=== PATIENT | female | born 1955 | race Caucasian/White ===

== ENCOUNTER → 2019-07-10 | Outpatient (CLI) | payer BC ==
[2014-11-05 18:02] VITALS: BP 151/72
--- NOTE | 2019-07-10 13:58 | KCIC ---
Bilateral digital screening mammograms with 3-D tomosynthesis: Reason for examination: Routine screening. Comparison is made to previous studies dated 07/09/2017 and 07/07/2016. Bilateral mammograms in CC and oblique projections were obtained with 2-D imaging and 3-D tomosynthesis imaging on a Siemens Inspiration unit and reviewed on the workstation. Interpretation was made with the benefit of CAD. The skin and nipples show no abnormalities. No abnormal axillary lymph nodes are seen. The breast parenchyma is extremely dense. (Breast density: Category D.) There continues to be nodular asymmetry at the 2:00 C position of the left breast which is stable and appears contained punctate calcifications and may represent a degenerating fibroadenoma. There are however new areas of nodular parenchymal density in the lower inner quadrant of the left breast at the 8:00 B position measuring approximately 9 mm in size and in the inferior right breast seen best on oblique view measuring 8 mm in size and probably located at the 6:00 B position. No suspicious calcifications are seen but there are a cluster of punctate calcifications again present in the upper outer quadrant of the right breast which are stable. Biopsy clip remains present in the right breast. There are a few scattered benign calcifications seen bilaterally. IMPRESSION: Stable nodule density at the 2:00 C position of the left breast. New nodular densities in approximately the 8:00 B position of the left breast and 6:00 B position of the right breast. Recommend further evaluation with bilateral breast ultrasound. Your patient's mammogram demonstrates that she has dense breast tissue (breast density category C or D), which could hide abnormalities, and if she has other risk factors for breast cancer that have been identified, she might benefit from supplemental screening tests that may be suggested by you as her ordering physician. Dense breast tissue, in and of itself, is a relatively common condition. Therefore, this information is not provided to cause undue concern, but rather to raise your awareness and to promote discussion with your patient regarding the presence of other risk factors, in addition to dense breast tissue. Your patient's mammography results will be sent to her. BI-RAD Category 0: Incomplete. Needs additional imaging evaluation. "Our facility is accredited by the [employer] Mammography Program." This patient's information has been entered into a reminder system for the patient to be notified with the results of her examination and a target date for the next mammogram. Electronically signed by: Fanny Dickson MD (07/10/2019 1:55 PM) [id number]
== END | disposition home or self-care (01) ==
LOC: KCIC MAMMO 10:52
PROVIDERS: ATTEND Family Medicine
DX: Z12.31 Encounter for screening mammogram for malignant neoplasm of breast (principal); N64.89 Other specified disorders of breast
CPT/HCPCS: 77063; 77067

== ENCOUNTER → 2019-07-21 | Outpatient (CLI) | payer BC ==
[2014-11-05 18:02] VITALS: BP 151/72
--- NOTE | 2019-07-21 17:23 | KCIC ---
Bilateral breast ultrasound: Reason for examination: Nodular densities on screening mammogram. Comparison is made to mammographic exam dated 07/10/2019. Bilateral whole breast ultrasound including evaluation of all 4 quadrants and the retroareolar and axillary regions of both breasts was performed. In the right breast at the 10:00 position, there is a 6.2 mm hypoechoic circumscribed lesion with a benign fibrocystic appearance. No other cystic or solid lesions are seen in the right breast. No abnormal appearing lymph nodes are seen. In the left breast, there is a a 9.8 mm fibrocystic type lesion at the 1:00 position 4 cm from the nipple which has a benign fibrocystic or fibroadenomatous appearance. No other cystic or solid lesions are identified in the left breast. No abnormal appearing lymph nodes are seen in the left axilla. IMPRESSION: Small benign-appearing fibrocystic type lesions seen bilaterally. No suspicious lesion seen. Recommend 6 month follow-up with mammograms and ultrasound. BI-RADS Category 3: Probably Benign. "Our facility is accredited by the [employer] Mammography [employer]." This patient's information has been entered into a reminder system for the patient to be notified with the results of her examination and a target date for the next mammogram. Electronically signed by: Fanny Dickson MD (07/21/2019 5:20 PM) [id number]
== END | disposition home or self-care (01) ==
LOC: KCIC US 12:29
PROVIDERS: ATTEND Family Medicine
DX: N64.89 Other specified disorders of breast (principal); N63.20 Unspecified lump in the left breast, unspecified quadrant; N63.10 Unspecified lump in the right breast, unspecified quadrant
CPT/HCPCS: 76641

== ENCOUNTER → 2020-04-24 | Outpatient (CLI) | payer BC ==
[2014-11-05 18:02] VITALS: BP 151/72
--- NOTE | 2020-04-24 12:42 | KCIC ---
Bilateral diagnostic digital mammograms with 3-D tomosynthesis: Reason for examination: Follow-up nodules. Comparison is made to previous studies dated back to 07/07/2016. Bilateral mammograms in CC and oblique projections were obtained with 2-D imaging and 3-D tomosynthesis imaging on a Siemens Inspiration unit and reviewed on the workstation. Interpretation was made with the benefit of CAD. The skin and nipples show no abnormalities. No abnormal axillary lymph nodes are seen. The breast parenchyma is extremely dense. (Breast density: Category D.) There continued be nodular parenchymal densities seen bilaterally which are stable remain stable. There are no new dominant masses, suspicious calcifications or architectural distortion. Benign calcifications are present. Impression: Continued presence of nodular asymmetries bilaterally which are stable. Ultrasound to follow. Your patient's mammogram demonstrates that she has dense breast tissue (breast density category C or D), which could hide abnormalities, and if she has other risk factors for breast cancer that have been identified, she might benefit from supplemental screening tests that may be suggested by you as her ordering physician. Dense breast tissue, in and of itself, is a relatively common condition. Therefore, this information is not provided to cause undue concern, but rather to raise your awareness and to promote discussion with your patient regarding the presence of other risk factors, in addition to dense breast tissue. Your patient's mammography results will be sent to her. BI-RAD Category 0: Incomplete. Needs additional imaging evaluation. Bilateral breast ultrasound: Comparison is made to previous study dated 07/21/2019. Bilateral whole breast ultrasound including evaluation of all 4 quadrants and the retroareolar and axillary regions of both breasts was performed. The right breast continues to show a small hypoechoic fibrocystic type nodule at the 10:00 position 4 cm from the nipple measuring 4.8 mm in greatest dimension which is smaller than previous exam. No other cystic or solid nodules are seen in the right breast. No abnormal appearing lymph nodes are seen in the right axilla. The left breast continues to show a 8.6 x 7.5 mm hypoechoic nodule with calcifications which would correspond with the nodule seen in the upper outer quadrant mammographically and probably represents a fibroadenoma considering stability in size. At the 2:00 position 5 cm from the nipple, there also appears to be a 1.2 cm hypoechoic circumscribed lesion in parallel orientation which may represent a fibroadenoma. No other focal lesions are seen in the left breast. No abnormal appearing lymph nodes are seen in the left axilla. IMPRESSION: Slight decrease in size of the fibrocystic lesion at the 10:00 position of the right breast. Hypoechoic nodule with calcifications measuring 8.6 mm in greatest dimension and the left breast and corresponding to the nodular density at the 2:00 position and probably represents a fibroadenoma. Recommend 6 month follow-up with left breast mammograms and ultrasound. BI-RADS Category 3: Probably Benign. "Our facility is accredited by the [employer] Mammography Program." This patient's information has been entered into a reminder system for the patient to be notified with the results of her examination and a target date for the next mammogram. Electronically signed by: Fanny Dickson MD (04/24/2020 12:39 PM) [id number]
== END | disposition home or self-care (01) ==
LOC: KCIC MAMMO 07:51
PROVIDERS: ATTEND Family Medicine
DX: R92.2 Inconclusive mammogram (principal); R92.1 Mammographic calcification found on diagnostic imaging of breast
CPT/HCPCS: 76641; 77066; G0279; 77062